=== PATIENT | female | born 1940 | race Caucasian/White ===

== ENCOUNTER 2019-10-23 10:00 | Day surgery (SDC) | payer OTHER | END 2019-10-23 14:00 | disposition home or self-care (01) | LOC: AMB-ENDOS 10:00 | PROVIDERS: ATTEND Colon & Rectal Surgery | DX: K62.89 Other specified diseases of anus and rectum (principal); K64.1 Second degree hemorrhoids; Z20.828 Contact with and (suspected) exposure to other viral communicable diseases ==